=== PATIENT | female | born 1955 | race African-American/Black ===

== ENCOUNTER 2017-07-13 20:08 | Emergency (ER) | payer OTHER ==
[~2017-07-13] VITALS: Ht 170.2 cm; Wt 77.6 kg
--- NOTE | ~2017-07-13 | EKG ---
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
[~2017-07-13 20:08] MED LIST: ACETAMINOPHEN-1 EAC1 PO; AZOR 10-20 MG1 EACH PO; CARAFATE 1 GM TA1 GM PO; CELEBREX 200 M200 M1 PO; CEPHALEXIN 500500 M3 PO; CIPRO250 M1 PO; CITRATE OF MAG296 ML PO; COZAAR100 MG PO; ENDOCET 10-3251 EACH PO; FLEXERIL; FLEXERIL PO; FOSAMAX 70 MG T70 MG PO; HYDROCODON-ACE1 EAC7 PO; HYDROCODONE-AP1 EAC6 PO; INDAPAMIDE2.5 MG PO; IRON325 PO; KLOR-CON 10 ER10 MEQ PO; LIPITOR 20 MG T20 M1 PO; LOSARTAN POTAS100 MG PO; LOVAZA1000 MG PO; MEDROL DOSPAK21 TA1 PO; MEDROL DOSPAK21 TAB PO; MEDROLDOSEPACK PO; METOPROLOL SUCC25 M1 PO; MICRO-K 10 MEQ10 MEQ OR; NORCO 5-325 TA1 EACH PO; NORFLEX100 MG PO; NORVASC 5 MG TAB5 MG PO; OMEPRAZOLE 20 M20 M1 PO; OXYCODONE HCL15 MG; OXYCODONE HCL15 MG PO; OXYCONTIN10 M1 PO; OXYCONTIN30 MG; OXYCONTIN30 MG PO; PAXIL10 MG; PENICILLIN V P500 MG PO; PEPCID20 MG PO; PERCOCET 10-321 EACH; PERCOCET 10-321 EACH PO; PERCOCET 5-3251 EACH PO; PERCOCET PO; PLAVIX 75 MG TA75 M1 PO; PRAVACHOL40 MG PO; PRAVASTATIN SOD10 MG; PRAVASTATIN SOD20 MG PO; PRAVASTATIN SOD80 MG PO; PREDNISONE 20 M20 M1 PO; PREDNISONE 20 M20 MG PO; PRILOSEC40 MG PO; PROTONIX40 M2 PO; ROBAXIN 750 MG750 M1 PO; TOPROL XL25 MG PO; TRAMADOL 50 MG50 MG PO; ULTRACET TABLE1 EACH PO; ULTRAM 50MG TAB50 MG PO; VALIUM2 MG PO; VALIUM5 MG PO; VITAMIN D2000 UNIT PO; VITAMIN D400 UNI1 PO
[2017-07-13 21:45] LABS: ABSOLUTE NEUTROPHILS 2.1 thou/uL (1.4-8.2); BASOPHILS 0.8 % (0.0-2.0); EOSINOPHILS 2.9 % (0.0-3.0); HEMATOCRIT 36.3 % (37.0-47.0); HEMOGLOBIN 11.8 gm/dL (12.0-15.0); LYMPHOCYTES 47.9 % (24.0-44.0); MCH 28.7 pg (26.0-34.0); MCHC 32.6 g/dL (28.0-37.0); MONOCYTES 11.6 % (1.0-8.0); PLATELET COUNT 290 thou/uL (150-400); POLYS 36.8 % (36.0-66.0); RBC 4.13 mil/uL (4.20-5.00); RDW 15.2 % (10.5-14.5); WBC 5.7 thou/uL (4.0-11.0)
[2017-07-13 21:49] LABS: MANUAL DIFF NO
[2017-07-13 21:52] LABS: ANION GAP 5 mmol/L (7-16); BUN 13 mg/dL (7-18); CALCIUM 9.4 mg/dL (8.5-10.1); CHLORIDE 104 mmol/L (98-107); CO2 31 mmol/L (21-32); CREATININE 1.2 mg/dL (0.6-1.0); GLUCOSE 104 mg/dL (74-106); POTASSIUM 3.9 mmol/L (3.5-5.1); SODIUM 140 mmol/L (136-145)
[2017-07-13 22:01] LABS: ALBUMIN 3.5 g/dL (3.4-5.0); ALKALINE PHOSPHATASE 78 U/L (46-116); DIRECT BILIRUBIN 0.1 mg/dL (<0.1-0.3); SGOT 20 U/L (15-37); SGPT 23 U/L (30-65); TOTAL BILIRUBIN 0.4 mg/dL (<0.1-1.0); TOTAL PROTEIN 7.4 g/dL (6.4-8.2); TROPONIN-I < 0.04 ng/mL (<0.04-0.07)
[2017-07-13 22:19] LABS: URINE BILIRUBIN NEGATIVE (Negative); URINE BLOOD NEGATIVE (Negative); URINE COLOR YELLOW; URINE GLUCOSE-RANDOM* NEGATIVE (Negative); URINE KETONES NEGATIVE (Negative); URINE LEUKOCYTES-REFLEX NEGATIVE (Negative); URINE PROTEIN (DIPSTICK) NEGATIVE (Negative); URINE SPECIFIC GRAVITY 1.015 (1.003-1.035)
[2017-07-13 22:27] LABS: AMP/METHAMP Negative (Negative); BARBITURATES Negative (Negative); BENZODIAZEPINES Negative (Negative); COCAINE Negative (Negative); METHADONE Negative (Negative); OPIATES POSITIVE (Negative); PCP Negative (Negative); THC Negative (Negative)
[2017-07-13] MEDS ORDERED: PERCOCET 7.5-31 EACH PO (22:49)
== END 2017-07-13 23:57 | disposition home or self-care (01) ==
LOC: ER 20:08
PROVIDERS: Emergency Medicine
DX: M54.5 Low back pain (principal); M54.6 Pain in thoracic spine; I10 Essential (primary) hypertension; E78.5 Hyperlipidemia, unspecified; F41.0 Panic disorder [episodic paroxysmal anxiety]; K21.9 Gastro-esophageal reflux disease without esophagitis; G89.29 Other chronic pain; M54.2 Cervicalgia; M79.604 Pain in right leg; Z90.710 Acquired absence of both cervix and uterus; Z88.6 Allergy status to analgesic agent; Z88.2 Allergy status to sulfonamides; Z88.5 Allergy status to narcotic agent; Z88.8 Allergy status to other drugs, medicaments and biological substances

== ENCOUNTER 2017-08-13 18:05 | Emergency (ER) | payer OTHER ==
[~2017-08-13] VITALS: Ht 170.2 cm; Wt 77.6 kg
[~2017-08-13 18:05] MED LIST changes: +PERCOCET 7.5-31 EACH PO
[2017-08-13] MEDS ORDERED: TRAMADOL 50 MG50 MG PO (18:30)
[2017-08-13] MEDS ORDERED: AMOXIL 875 MG875 M1 PO (18:30)
== END 2017-08-13 20:17 | disposition home or self-care (01) ==
LOC: ER 18:05
DX: H66.91 Otitis media, unspecified, right ear (principal); J06.9 Acute upper respiratory infection, unspecified; I10 Essential (primary) hypertension; K21.9 Gastro-esophageal reflux disease without esophagitis; E78.5 Hyperlipidemia, unspecified; F41.0 Panic disorder [episodic paroxysmal anxiety]; Z90.710 Acquired absence of both cervix and uterus; Z98.890 Other specified postprocedural states; Z87.891 Personal history of nicotine dependence; Z88.6 Allergy status to analgesic agent; Z88.5 Allergy status to narcotic agent; Z88.2 Allergy status to sulfonamides; Z91.048 Other nonmedicinal substance allergy status; Z88.8 Allergy status to other drugs, medicaments and biological substances

== ENCOUNTER 2017-09-10 23:16 | Emergency (ER) | payer OTHER ==
[~2017-09-10] VITALS: Ht 170.2 cm; Wt 77.6 kg
[~2017-09-10 23:16] MED LIST changes: +AMOXIL 875 MG875 M1 PO
[2017-09-11] MEDS ORDERED: PERCOCET PO (01:33)
== END 2017-09-11 02:08 | disposition home or self-care (01) ==
LOC: ER 23:16
DX: G89.29 Other chronic pain (principal); M54.5 Low back pain; I10 Essential (primary) hypertension; E78.5 Hyperlipidemia, unspecified; M79.605 Pain in left leg; F41.0 Panic disorder [episodic paroxysmal anxiety]; K21.9 Gastro-esophageal reflux disease without esophagitis; M54.2 Cervicalgia; Z88.6 Allergy status to analgesic agent; Z90.710 Acquired absence of both cervix and uterus; Z88.5 Allergy status to narcotic agent; Z88.2 Allergy status to sulfonamides; Z88.8 Allergy status to other drugs, medicaments and biological substances; Z87.891 Personal history of nicotine dependence

== ENCOUNTER 2017-11-07 19:53 | Emergency (ER) | payer OTHER ==
[~2017-11-07 19:53] MED LIST changes: +AMLODIPINE BESY10 MG
[2017-11-07 19:56] VITALS: BP 185/101
[2018-02-27] MEDS ORDERED: HYDROCODONE-AP1 EAC6 PO (12:55)
[2018-06-06] MEDS ORDERED: OXYCODONE HCL15 MG PO (23:41)
[2018-06-07] MEDS ORDERED: XALATAN2.5 ML OPHTHALMIC (03:45)
[2018-06-09] MEDS ORDERED: OXYCODONE HCL15 MG PO (14:49)
[2018-06-09] MEDS ORDERED: TYLENOL EXTRA500 MG PO (14:49)
[2018-06-09] MEDS ORDERED: NEURONTIN 300300 M1 PO (14:49)
[2018-06-09] MEDS ORDERED: XARELTO15 MG PO (14:49)
[2018-06-13] MEDS ORDERED: NORCO 5-325 TA1 EACH PO (09:51)
[2018-07-11] MEDS ORDERED: NORCO 5-325 TA1 EACH PO (16:00)
[2018-07-26] MEDS ORDERED: KEFLEX500 M1 PO (15:44)
[2018-07-26] MEDS ORDERED: NORCO 5-325 TA1 EACH PO ×2 (15:45→16:02)
[2018-07-26] MEDS ORDERED: CLEOCIN HCL300 MG PO (16:02)
[2018-08-17] MEDS ORDERED: COLACE100 MG PO (04:32)
== END 2017-11-07 20:30 | disposition home or self-care (01) ==
LOC: ER 19:53
DX: G89.29 Other chronic pain (principal); M54.5 Low back pain; I10 Essential (primary) hypertension; E78.5 Hyperlipidemia, unspecified; F41.0 Panic disorder [episodic paroxysmal anxiety]; K21.9 Gastro-esophageal reflux disease without esophagitis; M79.604 Pain in right leg; Z88.6 Allergy status to analgesic agent; Z90.710 Acquired absence of both cervix and uterus; Z88.5 Allergy status to narcotic agent; Z88.2 Allergy status to sulfonamides; Z87.891 Personal history of nicotine dependence

== ENCOUNTER 2018-01-04 00:42 | Inpatient (IN) | payer OTHER ==
[~2018-01-04] VITALS: Ht 170.2 cm; Wt 80.9 kg
[2018-01-04 00:44] VITALS: BP 175/100
[2018-01-04 03:48] VITALS: BP 175/106
[2018-01-04 03:49] LABS: ABSOLUTE NEUTROPHILS 6.9 thou/uL (1.4-8.2); BASOPHILS 0.6 % (0.0-2.0); EOSINOPHILS 0.1 % (0.0-3.0); HEMATOCRIT 35.9 % (37.0-47.0); HEMOGLOBIN 11.9 gm/dL (12.0-15.0); LYMPHOCYTES 22.8 % (24.0-44.0); MCH 28.1 pg (26.0-34.0); MCHC 33.1 g/dL (28.0-37.0); MCV 84.7 fL (80.0-100.0); MONOCYTES 10.3 % (1.0-8.0); PLATELET COUNT 330 thou/uL (150-400); POLYS 66.2 % (36.0-66.0); RBC 4.25 mil/uL (4.20-5.00); WBC 10.4 thou/uL (4.0-11.0)
[2018-01-04 03:56] LABS: CALCIUM 9.4 mg/dL (8.5-10.1); CREATININE 1.1 mg/dL (0.6-1.0); POTASSIUM 3.9 mmol/L (3.5-5.1)
[2018-01-04 07:36] VITALS: BP 184/112
[2018-01-04 08:28] VITALS: BP 174/100
[2018-01-04 16:36] VITALS: BP 178/108
[2018-01-04 20:00] VITALS: BP 178/104
[2018-01-05 04:00] VITALS: BP 170/97
[2018-01-05 08:46] VITALS: BP 177/97
[2018-01-05 16:00] VITALS: BP 147/92
[2018-01-05 20:06] VITALS: BP 171/110
[2018-01-06 04:00] VITALS: BP 134/92
[2018-01-06 07:10] VITALS: BP 144/78
[2018-01-06 15:50] VITALS: BP 137/83
[2018-01-06 20:00] VITALS: BP 141/90
[2018-01-07 04:00] VITALS: BP 159/97
[2018-01-07 07:57] VITALS: BP 139/95
[2018-01-07 08:08] LABS: SOURCE KNEE JOINT
[2018-01-07 08:09] LABS: BF CRYSTALS No Crystals seen
[2018-01-07 08:34] VITALS: BP 139/95
[2018-01-07] MEDS ORDERED: PERCOCET PO (09:17)
[2018-02-27] MEDS ORDERED: HYDROCODONE-AP1 EAC6 PO (12:55)
[2018-06-06] MEDS ORDERED: OXYCODONE HCL15 MG PO (23:41)
[2018-06-07] MEDS ORDERED: XALATAN2.5 ML OPHTHALMIC (03:45)
[2018-06-09] MEDS ORDERED: TYLENOL EXTRA500 MG PO (14:49)
[2018-06-09] MEDS ORDERED: XARELTO15 MG PO (14:49)
[2018-06-09] MEDS ORDERED: OXYCODONE HCL15 MG PO (14:49)
[2018-06-09] MEDS ORDERED: NEURONTIN 300300 M1 PO (14:49)
[2018-06-13] MEDS ORDERED: NORCO 5-325 TA1 EACH PO (09:51)
[2018-07-11] MEDS ORDERED: NORCO 5-325 TA1 EACH PO (16:00)
[2018-07-26] MEDS ORDERED: KEFLEX500 M1 PO (15:44)
[2018-07-26] MEDS ORDERED: NORCO 5-325 TA1 EACH PO ×2 (15:45→16:02)
[2018-07-26] MEDS ORDERED: CLEOCIN HCL300 MG PO (16:02)
[2018-08-17] MEDS ORDERED: COLACE100 MG PO (04:32)
== END 2018-01-07 13:12 | DRG 872 ==
LOC: ER 00:42 → 4N 02:57 → EROBS 02:57 → 4N 03:48
PROVIDERS: Emergency Medicine; Physician Assistant
PROC: 0S9D3ZZ Drainage of Left Knee Joint, Percutaneous Approach (ICD-10-PCS; principal; 2018-01-06)
DX: A41.9 Sepsis, unspecified organism (principal); F11.20 Opioid dependence, uncomplicated; M25.462 Effusion, left knee; M19.90 Unspecified osteoarthritis, unspecified site; I10 Essential (primary) hypertension; E78.5 Hyperlipidemia, unspecified; G89.29 Other chronic pain; M79.604 Pain in right leg; K21.9 Gastro-esophageal reflux disease without esophagitis; M54.9 Dorsalgia, unspecified; M54.2 Cervicalgia; Z88.6 Allergy status to analgesic agent; Z88.2 Allergy status to sulfonamides; Z88.8 Allergy status to other drugs, medicaments and biological substances; Z90.710 Acquired absence of both cervix and uterus; Z87.891 Personal history of nicotine dependence; Z85.118 Personal history of other malignant neoplasm of bronchus and lung; Z79.899 Other long term (current) drug therapy
CPT/HCPCS: 10091

== ENCOUNTER 2018-01-20 19:27 | Emergency (ER) | payer OTHER ==
[~2018-01-20] VITALS: Ht 170.2 cm; Wt 78.9 kg
[2018-01-20] MEDS ORDERED: SENNA-DOCUSATE1 EACH PO (20:36)
[2018-01-20] MEDS ORDERED: PERCOCET PO (20:36)
== END 2018-01-20 20:53 | disposition home or self-care (01) ==
LOC: ER 19:27
DX: M25.462 Effusion, left knee (principal); I10 Essential (primary) hypertension; E78.5 Hyperlipidemia, unspecified; G89.29 Other chronic pain; M79.604 Pain in right leg; K21.9 Gastro-esophageal reflux disease without esophagitis; M54.9 Dorsalgia, unspecified; Z88.6 Allergy status to analgesic agent; Z88.5 Allergy status to narcotic agent; Z88.2 Allergy status to sulfonamides; Z87.891 Personal history of nicotine dependence

== ENCOUNTER 2018-02-27 21:26 | Emergency (ER) | payer OTHER ==
[~2018-02-27] VITALS: Ht 170.2 cm; Wt 78.9 kg
[~2018-02-27 21:26] MED LIST changes: +SENNA-DOCUSATE1 EACH PO
== END 2018-02-27 23:09 | disposition home or self-care (01) ==
LOC: ER 21:26
DX: M54.9 Dorsalgia, unspecified (principal); G89.29 Other chronic pain; K21.9 Gastro-esophageal reflux disease without esophagitis; Z87.891 Personal history of nicotine dependence; Z88.2 Allergy status to sulfonamides; Z88.5 Allergy status to narcotic agent; Z88.6 Allergy status to analgesic agent

== ENCOUNTER 2018-05-17 20:16 | Emergency (ER) | payer OTHER ==
[~2018-05-17] VITALS: Ht 170.2 cm; Wt 78.9 kg
[2018-05-17] MEDS ORDERED: VOLTAREN GEL 1100 G2 TOP (21:17)
== END 2018-05-17 21:28 | disposition home or self-care (01) ==
LOC: ER 20:16
DX: M25.461 Effusion, right knee (principal); K21.9 Gastro-esophageal reflux disease without esophagitis; I10 Essential (primary) hypertension; E78.5 Hyperlipidemia, unspecified; G89.29 Other chronic pain; M54.9 Dorsalgia, unspecified; Z90.710 Acquired absence of both cervix and uterus; Z98.890 Other specified postprocedural states; Z87.891 Personal history of nicotine dependence; Z88.1 Allergy status to other antibiotic agents; Z88.5 Allergy status to narcotic agent; Z88.6 Allergy status to analgesic agent

== ENCOUNTER 2018-05-25 08:35 | Emergency (ER) | payer OTHER ==
[~2018-05-25] VITALS: Ht 170.2 cm; Wt 78.9 kg
--- NOTE | ~2018-05-25 | EKG ---
[place] [address] [facility] [place] [address] ELECTROCARDIOGRAM REPORT Name: PAO JAMESON 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 : 1955 Requested By: Gypsy Wall Order Number: [id number] MD: Gavino Sahu Measurements Intervals [place] Rate: 90 P: 17 DC: 142 QRS: -15 QRSD: 82 T: 5 QT: 363 QTc: 444 Interpretive Statements Sinus rhythm Possible Inferior infarct, old Compared to ECG 07/13/2017 21:29:53 No significant change was found Electronically Signed On 05-25-2018 17:17:04 CDT by Gavino Sahu [email or web address] <ELECTRONICALLY SIGNED> By: Gavino Sahu MD, [facility] 05/25/18 1717 1 1 Gavino Sahu MD, [facility] /EPI
[~2018-05-25 08:35] MED LIST changes: +VOLTAREN GEL 1100 G2 TOP
[2018-05-25 09:31] LABS: ABSOLUTE NEUTROPHILS 3.3 thou/uL (1.4-8.2); BASOPHILS 0.5 % (0.0-2.0); EOSINOPHILS 1.6 % (0.0-3.0); HEMATOCRIT 32.1 % (37.0-47.0); HEMOGLOBIN 10.4 gm/dL (12.0-15.0); LYMPHOCYTES 31.6 % (24.0-44.0); MCH 26.7 pg (26.0-34.0); MCHC 32.4 g/dL (28.0-37.0); MCV 82.3 fL (80.0-100.0); MONOCYTES 11.7 % (1.0-8.0); PLATELET COUNT 339 thou/uL (150-400); POLYS 54.6 % (36.0-66.0); RBC 3.91 mil/uL (4.20-5.00); RDW 15.7 % (10.5-14.5)
[2018-05-25 09:37] LABS: ANION GAP 5 mmol/L (7-16); BUN 11 mg/dL (7-18); CALCIUM 9.5 mg/dL (8.5-10.1); CHLORIDE 101 mmol/L (98-107); CO2 31 mmol/L (21-32); CREATININE 1.2 mg/dL (0.6-1.0); GLUCOSE 109 mg/dL (74-106); POTASSIUM 3.8 mmol/L (3.5-5.1); SODIUM 137 mmol/L (136-145)
[2018-05-25 09:46] LABS: ALBUMIN 3.1 g/dL (3.4-5.0); SGOT 28 U/L (15-37); SGPT 18 U/L (30-65); TOTAL BILIRUBIN 0.5 mg/dL (<0.1-1.0); TOTAL PROTEIN 7.4 g/dL (6.4-8.2); TROPONIN-I <0.06 ng/mL (<0.06)
== END 2018-05-25 11:27 | disposition home or self-care (01) ==
LOC: ER 08:35
PROVIDERS: Physician Assistant
DX: R07.9 Chest pain, unspecified (principal); I12.9 Hypertensive chronic kidney disease with stage 1 through stage 4 chronic kidney disease, or unspecified chronic kidney disease; N18.9 Chronic kidney disease, unspecified; E78.5 Hyperlipidemia, unspecified; G89.29 Other chronic pain; M54.5 Low back pain; M79.604 Pain in right leg; M54.2 Cervicalgia; K21.9 Gastro-esophageal reflux disease without esophagitis; E78.00 Pure hypercholesterolemia, unspecified; Z90.710 Acquired absence of both cervix and uterus; Z87.891 Personal history of nicotine dependence; Z88.6 Allergy status to analgesic agent; Z88.5 Allergy status to narcotic agent; Z88.2 Allergy status to sulfonamides; Z91.048 Other nonmedicinal substance allergy status; Z88.8 Allergy status to other drugs, medicaments and biological substances

== ENCOUNTER 2018-10-16 13:13 | Emergency (ER) | payer OTHER ==
[~2018-10-16] VITALS: Ht 170.2 cm; Wt 65.8 kg
[~2018-10-16 13:13] MED LIST changes: +BENTYL 20 MG TA20 M1 PO; +CLEOCIN HCL300 MG PO; +COLACE100 MG PO; +FLAGYL500 M1 PO; +IRON18 M1 PO; +KEFLEX500 M1 PO; +NEURONTIN 300300 M1 PO; +OSTERA TABLET1 EAC1 PO; +PRINIVIL20 MG PO; +TYLENOL EXTRA500 MG PO; +XALATAN2.5 ML OPHTHALMIC; +XARELTO15 MG PO; +ZANAFLEX2 MG PO
[2018-10-16] MEDS ORDERED: NORFLEX100 MG PO (15:17)
[2018-10-16] MEDS ORDERED: MEDROLDOSEPACK PO (15:17)
[2018-10-16 15:45] VITALS: BP 158/84
== END 2018-10-16 15:57 | disposition home or self-care (01) ==
LOC: ER 13:13
DX: S46.812A Strain of other muscles, fascia and tendons at shoulder and upper arm level, left arm, initial encounter (principal); S76.311A Strain of muscle, fascia and tendon of the posterior muscle group at thigh level, right thigh, initial encounter; K21.9 Gastro-esophageal reflux disease without esophagitis; I10 Essential (primary) hypertension; E78.5 Hyperlipidemia, unspecified; Z90.710 Acquired absence of both cervix and uterus; M54.9 Dorsalgia, unspecified; G89.29 Other chronic pain; Z90.5 Acquired absence of kidney; Z87.891 Personal history of nicotine dependence; Z88.2 Allergy status to sulfonamides; Z88.5 Allergy status to narcotic agent; Z88.6 Allergy status to analgesic agent; Z88.8 Allergy status to other drugs, medicaments and biological substances; X58.XXXA Exposure to other specified factors, initial encounter; Y93.89 Activity, other specified; Y92.89 Other specified places as the place of occurrence of the external cause; Y99.8 Other external cause status

== ENCOUNTER → 2019-09-07 | Outpatient (CLI) | payer OTHER ==
[~2019-09-07] MED LIST changes: +ACETAMINOPHEN-1 EAC2 PO; +COMBIGAN EYE DR10 ML OPHTHALMIC; +COZAAR 25 MG TA25 MG PO; +KAPSPARGO SPRIN25 MG PO; +LEVAQUIN 750 M750 MG PO; +LIPITOR80 MG PO; +NORVASC10 MG PO; +NORVASC5 MG PO; +OMEPRAZOLE40 MG PO; +PLAVIX 75 MG TA75 MG PO; +ROXICODONE5 M2 PO; +ZANAFLEX4 MG PO
== END ==
LOC: NUC 12:06
DX: R06.02 Shortness of breath (principal); F40.240 Claustrophobia